=== PATIENT | male | born 1950 | race Caucasian/White ===

== ENCOUNTER 2021-02-26 07:53 | Day surgery (SDC) | payer MEDICARE, OTHER ==
[~2021-02-26] VITALS: Ht 175.3 cm; Wt 101.6 kg
[~2021-02-26 07:53] MED LIST: LIPITOR20 MG PO; PRILOSEC 20MG20 MG PO; SINEQUAN 1100 MG/CAP PO; VITAMIN D31000 I1 PO
--- NOTE | 2021-02-26 08:30 | NUR ---
70 year old patient admitted to [facility] bay [facility]1 via ambulation. Height and weight obtained. Patients is present and with us. Medications and HX reviewed. Procedure verified and the patient signed the consent. Patient is a current DNR status and brought a copy of his Advanced Directives. Patient verbalized understanding about his DNR status being stopped during the operation and anesthesia recovery period, which is part of the consent. Vitals obtained. Patient denies pain. First and last name + verified with the patient. Patient is changing into a clean gown but is leaving his shorts on. Non-slip socks are on. Warm blanket provided. Call jeffries is at bedside.
[2021-02-26 09:10] VITALS: BP 124/53; PULSE 83; TEMP 97.6
[2021-02-26 10:32] VITALS: BP 120/64; PULSE 75; TEMP 98
--- NOTE | 2021-02-26 10:42 | NUR ---
1032 PATIENT ARRIVES TO [facility] VIA CART. VSS. PATIENT'S AT BEDSIDE. REPORT AND CARE OF PATIENT RECEIVED FROM MARSHA CEDENO AND TIMMY RN TECHNICAL ASSOC. BOOT OVER DRESSING NOTED TO L FOOT. PATIENT ABLE TO MOVE ALL EXTREMITIES. REPORTS THAT HE CAN FEEL NURSE TOUCHING HIS FOOT. DP 2+. CAP REFILL < 3 SEC.
[2021-02-26 10:45] VITALS: BP 106/69; PULSE 78
--- NOTE | 2021-02-26 10:53 | NUR ---
1045 PATIENT ALERT. DENIES PAIN. TAKING DIET PEPSI PO. REFUSED FOOD.
[2021-02-26 11:00] VITALS: BP 125/55; PULSE 74
--- NOTE | 2021-02-26 11:30 | NUR ---
1100 IV DC'D. CATH INTACT. TOLERATED WELL. D/C INSTRUCTIONS GIVEN VERBALLY AND IN WRITING. QUESTIONS INVITED AND ANSWERED. PATIENT VERBALIZED UNDERSTANDING. PATIENT UP GETTING DRESSED. 1121 PATIENT DISCHARGED TO POV VIA W/C WITH PATIENT'S SPOUSE.
== END 2021-02-26 11:21 | disposition home or self-care (01) ==
LOC: SDCO 07:53
DX: G57.61 Lesion of plantar nerve, right lower limb (principal); M19.90 Unspecified osteoarthritis, unspecified site; K21.9 Gastro-esophageal reflux disease without esophagitis; G47.33 Obstructive sleep apnea (adult) (pediatric); F17.210 Nicotine dependence, cigarettes, uncomplicated; F41.9 Anxiety disorder, unspecified; Z85.828 Personal history of other malignant neoplasm of skin; Z79.899 Other long term (current) drug therapy; Z80.9 Family history of malignant neoplasm, unspecified
CPT/HCPCS: J0690; J2405; J2704; J3010; J7120